=== PATIENT | female | born 1985 | race Caucasian/White ===

== ENCOUNTER 2016-07-28 20:29 | Emergency (ER) | payer BC ==
[~2016-07-28] VITALS: Ht 180.3 cm; Wt 83.9 kg
[~2016-07-28 20:29] MED LIST: CYCL10TA2 PO; SITA1TBM PO; TRAM-29 PO
[2016-07-28 20:35] VITALS: BP 155/87
[2016-07-28] MEDS ORDERED: PRED50TA PO (22:04)
[2016-07-28] MEDS ORDERED: AZIT250T PO (22:04)
[2016-07-28] MEDS ORDERED: PROM118S2 PO (22:04)
[2016-07-28] MEDS ORDERED: PROAIR RESPICL90 MCG IH (22:04)
--- NOTE | 2016-07-28 22:04 | PHYS DOC ---
Past Medical History Past Medical History: Anxiety, Diabetes-Type II Past Surgical History: Alcohol Use: None Drug Use: None Adult General Chief Complaint Chief Complaint: Congestion HPI HPI Patient is a 31 year old female with a history of diabetes type 2 and asthma who presents today with a sore throat, productive cough, nasal congestion, that began 5 days ago. Patient denies any fever. She states she works at the [employer] and they will not let her back to work with her current symptoms. Patient states she stopped smoking at the beginning of the year which is 17 days ago. Review of Systems Review of Systems Constitutional: Denies fever or chills [] Eyes: Denies change in visual acuity, redness, or eye pain [] HENT: nasal congestion and sore throat [] Respiratory: cough Cardiovascular: No additional information not addressed in HPI [] GI: Denies abdominal pain, nausea, vomiting, bloody stools or diarrhea [] : Denies dysuria or hematuria [] Musculoskeletal: Denies back pain or joint pain [] Integument: Denies rash or skin lesions [] Neurologic: Denies headache, focal weakness or sensory changes [] Endocrine: Denies polyuria or polydipsia [] Allergies Allergies Allergies Coded Allergies Type Severity Reaction Last Updated Verified No Known Drug Allergies 06/30/13 No Physical Exam Physical Exam Constitutional: Well developed, well nourished, no acute distress, non-toxic appearance. [] HENT: Normocephalic, atraumatic, bilateral external ears normal, oropharynx moist, no oral exudates, patient is nasally congested. Eyes: PERRLA, EOMI, conjunctiva normal, no discharge. [] Neck: Normal range of motion, no tenderness, supple, no stridor. [] Cardiovascular:Heart rate regular rhythm, no murmur [] Lungs & Thorax: Bilateral breath sounds clear to auscultation [] Abdomen: Bowel sounds normal, soft, no tenderness, no masses, no pulsatile masses. [] Skin: Warm, dry, no erythema, no rash. [] Back: No tenderness, no CVA tenderness. [] Extremities: No tenderness, no cyanosis, no clubbing, ROM intact, no edema. [] Neurologic: Alert and oriented X 3, normal motor function, normal sensory function, no focal deficits noted. [] Psychologic: Affect normal, judgement normal, mood normal. [] Current Patient Data Vital Signs Vital Signs Date Time Temp Pulse Resp B/P Pulse Ox O2 Delivery O2 Flow Rate FiO2 07/28/16 20:35 98.4 97 18 96 Room Air 98.4 EKG EKG [] Radiology/Procedures Radiology/Procedures [] Course & Med Decision Making Course & Med Decision Making Pertinent Labs and Imaging studies reviewed. (See chart for details) Patient was treated for bronchitis and an upper respiratory infection with Z-Dante , prednisone, albuterol treatments, and cough medicine. Instructed to follow-up with her own PCP in the next 7 days, provided a note for work for 3 days. Provided return precautions. Discharged in stable condition. Dragon Disclaimer Dragon Disclaimer This electronic medical record was generated, in whole or in part, using a voice recognition dictation system. Departure Departure Impression: Primary Impression: Acute bronchitis Additional Impression: Acute upper respiratory infection Disposition: HOME, SELF-CARE Condition: STABLE Referrals: EDILSON SIMON (PCP) follow up with your doctor in one week Patient Instructions: Acute Bronchitis, Upper Respiratory Infection, Adult Additional Instructions: You were seen for acute bronchitis and upper respiratory infection. Please complete your antibiotics. Congratulations for stop smoking. You kicked a bad habit. You will get better in a couple days. Follow up with your doctor in one week Scripts Promethazine Hcl/Codeine (Promethazine-Codeine Syrup)118 Ml Syrup5 Ml PO Q4- 6HRS #80 ML Prov:JEANNETTE BARRAGAN APRN 07/28/16 Azithromycin (Zithromax)250 Mg Tablet1 Pkg PO UD #1 PKG Prov:JEANNETTE BARRAGAN APRN 07/28/16 Prednisone 50 Mg Tablet1 Tab PO DAILY #5 TAB Prov:JEANNETTE BARRAGAN APRN 07/28/16 Albuterol Sulfate (Proair Respiclick)90 Mcg Aer.[id number].[email or web address] Puff IH PRN Q6HRS PRN SHORTNESS OF BREATH #1 INHALER Prov:JEANNETTE BARRAGAN APRN 07/28/16 Problem Qualifiers Primary Impression: Acute bronchitis Bronchitis organism: unspecified organism Qualified Code: J20.9 - Acute bronchitis, unspecified SERINALORENZOJEANNETTE Tineo APRN Jul 28, 2016 22:04
[2016-08-03] MEDS ORDERED: BENZ200C39 PO (19:36)
[2016-08-03] MEDS ORDERED: PRED20TA PO (19:36)
== END 2016-07-28 22:10 | disposition home or self-care (01) ==
LOC: ER 20:29
DX: J20.9 Acute bronchitis, unspecified (principal); J06.9 Acute upper respiratory infection, unspecified; J45.909 Unspecified asthma, uncomplicated; E11.9 Type 2 diabetes mellitus without complications; F41.9 Anxiety disorder, unspecified; Z87.891 Personal history of nicotine dependence
CPT/HCPCS: 99283